=== PATIENT | female | born 1940 | race Caucasian/White ===

== ENCOUNTER 2018-12-25 13:56 | Emergency (ER) | payer OTHER ==
[~2018-12-25] VITALS: Ht 165.1 cm; Wt 58.2 kg
[2018-12-25 14:07] VITALS: Ht 165.1 cm; Wt 58.2 kg
[2018-12-25 14:58] LABS: BASOPHIL % 0.5 % (0-2); PLATELET COUNT 264 x10^3mcL (130-400)
[2018-12-25 15:04] LABS: RED CELL DISTRIBUTION WIDTH 15.1 % (11.5-14.5)
[2018-12-25 15:13] LABS: CALCIUM 9.4 mg/dL (8.5-10.1); CARBON DIOXIDE 27.3 mmol/L (21-32); CHLORIDE SERUM 105 mmol/L (98-107); CREATININE SERUM 0.7 mg/dL (0.6-1.0); GLUCOSE SERUM 109 mg/dL (74-106); POTASSIUM SERUM 3.6 mmol/L (3.5-5.1); SODIUM SERUM 144 mmol/L (136-145)
[2018-12-25 15:24] LABS: ALBUMIN 4.1 g/dL (3.4-5.0); ALKALINE PHOSPHATASE 88 U/L (46-116); ALT/SGPT 20 U/L (14-59); AST/SGOT 20 U/L (15-37); BILIRUBIN TOTAL 0.4 mg/dL (0.20-1.00); HDL CHOLESTEROL 57 mg/dL (40-60); LIPASE 184 IU/L (73-393); MAGNESIUM 2.1 mg/dL (1.8-2.4)
[2018-12-25 15:27] LABS: CHOLESTEROL 252 mg/dL (<200)
[2018-12-25 15:30] VITALS: BP 234/109
[2018-12-25 15:56] LABS: microscopic required? YES; urine erythrocyte TRACE (NEGATIVE)
[2018-12-25 16:00] LABS: AMPHETAMINE QUAL UR NONE DETECTED (See below)
== END 2018-12-25 15:31 | disposition short-term general hospital (02) ==
LOC: ED 13:56
PROVIDERS: Emergency Medicine
DX: I63.9 Cerebral infarction, unspecified (principal); I10 Essential (primary) hypertension
CPT/HCPCS: 82962; 83880; G0480; J3490; Q0092